=== PATIENT | female | born 1990 | race Caucasian/White ===

== ENCOUNTER → 2018-03-16 | Outpatient (CLI) | payer SELFPAY ==
--- NOTE | 2018-03-16 16:14 | RADIOLOGY REPORT (SQ) ---
EXAM DESCRIPTION: U/S OB 14+ TRNABD 1GES W/O DOP COMPLETED DATE/TIME: 03/16/2018 3:55 pm REASON FOR STUDY: Z34.82 ENCOUNTER FOR SUPERVISION OF OTHER NORMAL ,SECOND TRIMESTER Z34.82 ENCOUNTER FOR SUPRVSN OF NORMAL , SECOND TRI COMPARISON: None. TECHNIQUE: Static and Dynamic grayscale imaging performed of gravid uterus using transabdominal appr oach. Additional selected color Doppler and spectral images recorded. All stored on PACS. LIMITATIONS: None. FINDINGS: FETUSES SEEN:1 EGA: 19 week 2 day. Calculated using BPD,FL,HC,AC documented on images. No discrepancy with clinical dates. MONICA: 08/08/2018. EFW: 289 grams PERCENTILE: Not applicable. Fetus less than or equal to 20 weeks gestation. CORIE: Largest measured pocket 4.4 cm. PLACENTA: Posterior. GRADE: I PRESENTATION: Cephalic. ANATOMY: HEART RATE: 157 beats per minute. FOUR CHAMBER HEART: Visualized. THREE VESSEL CORD: Yes. CORD INSERTION: Visualized. KIDNEYS AND BLADDER: Visualized. Appear normal. STOMACH: Visualized. Appears normal. SPINE: Normal as visualized. BRAIN AND LATERAL VENTRICLES: Visualized. Appear normal. OTHER: No other significant finding. MATERNAL ADNEXA: Maternal ovaries not visualized. CERVICAL LENGTH: 6.2 cm. Closed. OTHER: No other significant finding. IMPRESSION: LIVING INTRAUTERINE . ESTIMATED GESTATIONAL AGE 19 WEEK 2 DAY. NO VISUALIZED ANOMALIES. Trimester of : Second trimester - 13 weeks 1 day to 27 weeks 6 days. TECHNICAL DOCUMENTATION: JOB ID: [id number]- All Rights Reserved Reading location - IP/workstation name: JOSE D
== END ==
LOC: RAD 14:54
PROVIDERS: ATTEND Nurse Practitioner
DX: Z34.82 Encounter for supervision of other normal pregnancy, second trimester (principal)
CPT/HCPCS: 76805

== ENCOUNTER 2018-07-01 11:22 | Outpatient (CLI) | payer OTHER, MEDICAID ==
[2018-07-01 12:37] LABS: APPEARANCE,URINE CLEAR; BILIRUBIN,URINE NEGATIVE (NEGATIVE); COLOR,URINE YELLOW; GLUCOSE, URINE NEGATIVE (NEGATIVE); KETONES,URINE NEGATIVE (NEGATIVE); LEUKOCYTE ESTERASE,URINE NEGATIVE (NEGATIVE); NITRITE,URINE NEGATIVE (NEGATIVE); PROTEIN,URINE NEGATIVE (NEGATIVE); URINE SPECIFIC GRAVITY 1.009; UROBILINOGEN,URINE NEGATIVE mg/dL (<2.0)
--- NOTE | 2018-07-01 12:37 | Non Stress Test Report ---
Non Stress Test Datetime Report Generated by CPN: 07/01/2018 12:37 DEMOGRAPHIC EGA NST: 35.0 INDICATION Indication for Study: Ordered by Provider VITAL SIGNS Temperature - NST: 97.9 Pulse - NST: 93 RESP - NST: 18 NBPSYS NST: 94 NBPDIA NST: 54 MONITORING Monitor Explained: Monitor Explained; Test Explained; Patient Verbalized Understanding Time on Monitor: 07/01/2018 11:35 Time off Monitor: 07/01/2018 12:10 NST Duration: 35 NST INTERVENTIONS NST Interventions: PO Hydration Physician Notified NST: K Turpin CNM BABY A: [id number] BABY A Movement : Present Contraction Frequency : irritability FHR Baseline : 145 Accelerations : 15X15 Decelerations : None Variability : Moderate 6-25bpm NST Review: Meets Criteria for Reactive NST NST Review and Verified By : Rony Hopson RN NST Results: Reactive NST REPORT Report Trigger: Send Report
[2018-07-01 12:38] LABS: URINE AMPHETAMINES SCREEN NEGATIVE; URINE BARBITURATES SCREEN NEGATIVE; URINE BENZODIAZEPINES SCREEN NEGATIVE; URINE COCAINE SCREEN NEGATIVE; URINE MARIJUANA (THC) SCREEN NEGATIVE; URINE METHADONE SCREEN NEGATIVE; URINE PHENCYCLIDINE SCREEN NEGATIVE
== END 2018-07-01 12:39 | disposition home or self-care (01) ==
LOC: LC 11:22
PROVIDERS: ATTEND Obstetrics & Gynecology
PROC: 4A1HXCZ Monitoring of Products of Conception, Cardiac Rate, External Approach (ICD-10-PCS; principal; 2018-07-01)
DX: O47.03 False labor before 37 completed weeks of gestation, third trimester (principal); Z3A.35 35 weeks gestation of pregnancy
CPT/HCPCS: 59025; 80307; 81001; 84112

== ENCOUNTER 2018-07-14 17:39 | Outpatient (CLI) | payer OTHER, MEDICAID ==
[2018-07-14 18:29] LABS: APPEARANCE,URINE CLOUDY; BILIRUBIN,URINE NEGATIVE (NEGATIVE); COLOR,URINE YELLOW; GLUCOSE, URINE NEGATIVE (NEGATIVE); KETONES,URINE NEGATIVE (NEGATIVE); LEUKOCYTE ESTERASE,URINE TRACE (NEGATIVE); NITRITE,URINE NEGATIVE (NEGATIVE); PROTEIN,URINE NEGATIVE (NEGATIVE); URINE SPECIFIC GRAVITY 1.006; UROBILINOGEN,URINE NEGATIVE mg/dL (<2.0)
[2018-07-14 18:51] LABS: URINE AMPHETAMINES SCREEN NEGATIVE; URINE BARBITURATES SCREEN NEGATIVE; URINE BENZODIAZEPINES SCREEN NEGATIVE; URINE COCAINE SCREEN NEGATIVE; URINE MARIJUANA (THC) SCREEN NEGATIVE; URINE METHADONE SCREEN NEGATIVE; URINE PHENCYCLIDINE SCREEN NEGATIVE
[2018-07-14] MEDS ORDERED: RINGERS SOLUTION,LACTATED 300 ML IV ONE (18:56)
[2018-07-14] MEDS ORDERED: ONDANSETRON HCL INJ/PF 4 MG/2 ML SDV IV ONE (19:16)
[2018-07-14] MEDS ORDERED: RINGERS SOLUTION,LACTATED 1,000 ML IV PRN (19:22)
[2018-07-14] MEDS ORDERED: ONDANSETRON HCL INJ/PF 4 MG/2 ML SDV ONE (19:31)
--- NOTE | 2018-07-14 20:57 | Non Stress Test Report ---
Non Stress Test Datetime Report Generated by CPN: 07/14/2018 20:57 DEMOGRAPHIC Test Number: 2 EGA NST: 36.6 INDICATION Indication for Study (NST) Other: N/V and back pain MONITORING Monitor Explained: Monitor Explained; Test Explained; Patient Verbalized Understanding Time on Monitor: 07/14/2018 18:05 Time off Monitor: 07/14/2018 20:20 NST Duration: 135 NST INTERVENTIONS NST Interventions: PO Hydration; IV Fluids; Other Physician Notified NST: Dr. Hardwick BABY A: [id number] BABY A Movement : Present Contraction Frequency : none FHR Baseline : 125 Accelerations : 15X15 Decelerations : None Variability : Moderate 6-25bpm NST Review: Meets Criteria for Reactive NST NST Review and Verified By : JAMES Schaffer NST Results: Reactive NST REPORT Report Trigger: Send Report
== END 2018-07-14 20:38 | disposition home or self-care (01) ==
LOC: LC 17:39
PROVIDERS: ATTEND Obstetrics & Gynecology
PROC: 4A1HXCZ Monitoring of Products of Conception, Cardiac Rate, External Approach (ICD-10-PCS; principal; 2018-07-14)
DX: O21.2 Late vomiting of pregnancy (principal); Z3A.36 36 weeks gestation of pregnancy
CPT/HCPCS: 81005; 80307; 59025; J2405

== ENCOUNTER 2018-07-27 16:45 | Outpatient (CLI) | payer OTHER, MEDICAID ==
[2018-07-27 17:34] LABS: APPEARANCE,URINE CLEAR; BILIRUBIN,URINE NEGATIVE (NEGATIVE); COLOR,URINE STRAW; GLUCOSE, URINE NEGATIVE (NEGATIVE); KETONES,URINE NEGATIVE (NEGATIVE); LEUKOCYTE ESTERASE,URINE NEGATIVE (NEGATIVE); NITRITE,URINE NEGATIVE (NEGATIVE); PROTEIN,URINE NEGATIVE (NEGATIVE); URINE SPECIFIC GRAVITY 1.003; UROBILINOGEN,URINE NEGATIVE mg/dL (<2.0)
--- NOTE | 2018-07-27 17:41 | Non Stress Test Report ---
Non Stress Test Datetime Report Generated by CPN: 07/27/2018 17:41 DEMOGRAPHIC EGA NST: 38.5 INDICATION Indication for Study: Other Indication for Study (NST) Other: LC MONITORING Monitor Explained: Monitor Explained; Test Explained; Patient Verbalized Understanding Time on Monitor: 07/27/2018 17:02 Time off Monitor: 07/27/2018 17:35 NST Duration: 33 NST INTERVENTIONS NST Interventions: None Physician Notified NST: Dr. Redd BABY A: [id number] BABY A Movement : Present Contraction Frequency : none FHR Baseline : 130 Accelerations : 15X15 Decelerations : None Variability : Moderate 6-25bpm NST Review: Meets Criteria for Reactive NST NST Review and Verified By : Gio Rainey RN NST Results: Reactive NST REPORT Report Trigger: Send Report
[2018-07-27 17:53] LABS: URINE AMPHETAMINES SCREEN NEGATIVE; URINE BARBITURATES SCREEN NEGATIVE; URINE BENZODIAZEPINES SCREEN NEGATIVE; URINE COCAINE SCREEN NEGATIVE; URINE MARIJUANA (THC) SCREEN NEGATIVE; URINE METHADONE SCREEN NEGATIVE; URINE PHENCYCLIDINE SCREEN NEGATIVE
== END 2018-07-27 18:07 | disposition home or self-care (01) ==
LOC: LC 16:45
PROVIDERS: ATTEND Obstetrics & Gynecology
PROC: 4A1HXCZ Monitoring of Products of Conception, Cardiac Rate, External Approach (ICD-10-PCS; principal; 2018-07-27)
DX: Z34.83 Encounter for supervision of other normal pregnancy, third trimester (principal); Z3A.38 38 weeks gestation of pregnancy
CPT/HCPCS: 59025; 80307; 81001

== ENCOUNTER 2018-07-31 21:10 | Outpatient (CLI) | payer OTHER, MEDICAID ==
[2018-07-31] MEDS ORDERED: OXYCODONE-ACETAMINOPHEN 5-325 MG TABLET PO ONE (22:05)
[2018-07-31] MEDS ORDERED: ZOLPIDEM TARTRATE 5 MG TABLET PO ONE (22:05)
[2018-07-31] MEDS ORDERED: ZOLPIDEM TARTRATE 5 MG TABLET ONE (22:08)
[2018-07-31] MEDS ORDERED: OXYCODONE-ACETAMINOPHEN 5-325 MG TABLET ONE (22:09)
[2018-07-31 22:11] LABS: APPEARANCE,URINE CLOUDY; BILIRUBIN,URINE NEGATIVE (NEGATIVE); COLOR,URINE YELLOW; GLUCOSE, URINE NEGATIVE (NEGATIVE); KETONES,URINE NEGATIVE (NEGATIVE); LEUKOCYTE ESTERASE,URINE TRACE (NEGATIVE); NITRITE,URINE NEGATIVE (NEGATIVE); PROTEIN,URINE NEGATIVE (NEGATIVE); URINE SPECIFIC GRAVITY 1.016; UROBILINOGEN,URINE NEGATIVE mg/dL (<2.0)
[2018-07-31 22:30] LABS: URINE AMPHETAMINES SCREEN NEGATIVE; URINE BARBITURATES SCREEN NEGATIVE; URINE BENZODIAZEPINES SCREEN NEGATIVE; URINE COCAINE SCREEN NEGATIVE; URINE MARIJUANA (THC) SCREEN NEGATIVE; URINE METHADONE SCREEN NEGATIVE; URINE PHENCYCLIDINE SCREEN NEGATIVE
--- NOTE | 2018-07-31 23:06 | Non Stress Test Report ---
Non Stress Test Datetime Report Generated by CPN: 07/31/2018 23:06 DEMOGRAPHIC EGA NST: 39.2 INDICATION Indication for Study: Other Indication for Study (NST) Other: LC VITAL SIGNS Temperature - NST: 98.1 Pulse - NST: 107 RESP - NST: 16 NBPSYS NST: 98 NBPDIA NST: 55 URINE RESULTS Urine Protein, NST: Negative Urine Ketones - NST: Negative Urine Glucose - NST: Negative Urine Blood - NST: Negative MONITORING Monitor Explained: Monitor Explained; Test Explained Time on Monitor: 07/31/2018 21:30 Time off Monitor: 07/31/2018 22:02 NST Duration: 32 NST INTERVENTIONS NST Interventions: PO Hydration; Reposition Patient Physician Notified NST: Dr. Rodriguez BABY A: [id number] BABY A Movement : Present Contraction Frequency : N/A FHR Baseline : 125 Accelerations : 15X15 Decelerations : None Variability : Moderate 6-25bpm NST Review: Meets Criteria for Reactive NST NST Review and Verified By : YVETTE Mitchell NST Results: Reactive NST REPORT Report Trigger: Send Report
== END 2018-07-31 22:24 | disposition home or self-care (01) ==
LOC: LC 21:10
PROVIDERS: ATTEND Obstetrics & Gynecology
PROC: 4A1HXCZ Monitoring of Products of Conception, Cardiac Rate, External Approach (ICD-10-PCS; principal; 2018-07-31)
DX: Z34.93 Encounter for supervision of normal pregnancy, unspecified, third trimester (principal)
CPT/HCPCS: 59025; 80307; 81005

== ENCOUNTER 2018-08-11 03:40 | Outpatient (CLI) | payer OTHER, MEDICAID ==
[2018-08-11 04:59] LABS: APPEARANCE,URINE SLIGHTLY-CLOUDY; BILIRUBIN,URINE NEGATIVE (NEGATIVE); COLOR,URINE YELLOW; GLUCOSE, URINE NEGATIVE (NEGATIVE); KETONES,URINE NEGATIVE (NEGATIVE); LEUKOCYTE ESTERASE,URINE NEGATIVE (NEGATIVE); NITRITE,URINE NEGATIVE (NEGATIVE); PROTEIN,URINE NEGATIVE (NEGATIVE); URINE SPECIFIC GRAVITY 1.005; UROBILINOGEN,URINE NEGATIVE mg/dL (<2.0)
[2018-08-11 05:19] LABS: URINE AMPHETAMINES SCREEN NEGATIVE; URINE BARBITURATES SCREEN NEGATIVE; URINE BENZODIAZEPINES SCREEN NEGATIVE; URINE COCAINE SCREEN NEGATIVE; URINE MARIJUANA (THC) SCREEN NEGATIVE; URINE METHADONE SCREEN NEGATIVE; URINE PHENCYCLIDINE SCREEN NEGATIVE
[2018-08-11] MEDS ORDERED: HYDROXYZINE PAMOATE 50 MG CAPSULE PO ONE (06:11)
--- NOTE | 2018-08-11 06:11 | Non Stress Test Report ---
Non Stress Test Datetime Report Generated by CPN: 08/11/2018 06:10 DEMOGRAPHIC Test Number: 5 EGA NST: 40.6 INDICATION Indication for Study: Ordered by Provider; Other Indication for Study (NST) Other: labor check MONITORING Monitor Explained: Monitor Explained; Test Explained; Patient Verbalized Understanding Time on Monitor: 08/11/2018 04:07 Time off Monitor: 08/11/2018 05:01 NST Duration: 54 NST INTERVENTIONS NST Interventions: PO Hydration; Reposition Patient Physician Notified NST: Hardwick MD BABY A: [id number] BABY A Movement : Present Contraction Frequency : 4-12 FHR Baseline : 130 Accelerations : 15X15 Decelerations : None Variability : Moderate 6-25bpm NST Review: Meets Criteria for Reactive NST NST Review and Verified By : JAMES Bourne NST Results: Reactive NST REPORT Report Trigger: Send Report
[2018-08-11] MEDS ORDERED: HYDROXYZINE PAMOATE 50 MG CAPSULE ONE (06:14)
== END 2018-08-11 06:25 | disposition home or self-care (01) ==
LOC: LC 03:40
PROVIDERS: ATTEND Obstetrics & Gynecology
PROC: 4A1HXCZ Monitoring of Products of Conception, Cardiac Rate, External Approach (ICD-10-PCS; principal; 2018-08-11)
DX: Z34.93 Encounter for supervision of normal pregnancy, unspecified, third trimester (principal); Z3A.40 40 weeks gestation of pregnancy
CPT/HCPCS: 80307; 81005

== ENCOUNTER 2018-08-11 12:44 | Inpatient (IN) | payer OTHER, MEDICAID ==
[2018-08-11] MEDS ORDERED: MORPHINE SULFATE 10 MG/ML INJ IM ONE (13:57)
[2018-08-11] MEDS ORDERED: PROMETHAZINE HCL INJ 50 MG/1 ML VIAL IM ONE (13:59)
[2018-08-11] MEDS ORDERED: MORPHINE SULFATE 10 MG/ML INJ ONE (14:40)
[2018-08-11] MEDS ORDERED: RINGERS SOLUTION,LACTATED 1,000 ML IV ONE (16:44)
[2018-08-11] MEDS ORDERED: RINGERS SOLUTION,LACTATED 1,000 ML IV PRN (16:44)
--- NOTE | 2018-08-11 17:25 | Admission Physical ---
Datetime Report Generated by CPN: 08/11/2018 17:24 CURRENT ADMISSION Hx Assessment: The History has been Reviewed and is Current Chief Complaint: Uterine Contractions Indication for Induction: Not Applicable Admit Impression : Postterm, Intrauterine Admit Impression- Other: early labor Admit Plan: Admit to Unit; Initiate Labor Protocol ALLERGIES Medication Allergies: Yes Medication Allergies: Penicillins (08/11/2018); Sulfa (Sulfonamide Antibiotics) (08/11/2018) Latex: No Latex Allergies Food Allergies: Lorenzo greens Environmental Allergies: Yellow jacket OBSTETRICAL HISTORY EDC: 08/05/2018 00:00 : 2 Para: 0 IAB: 1 Ectopic: 0 Gestational Diabetes: No Rh Sensitization: No Incompetent Cervix: No DANIELA: No Infertility: Yes ART Treatment: No Uterine Anomaly: No IUGR: No Hx Previous C/S: No Macrosomia: No Hx Loss/Stillborn: No PIH: No Hx : No Placenta Previa/Abruption: No Depression/PP Depression: Yes PTL/PROM: No Post Hemorrhage: No Current Procedures: Ultrasound Obstetrical History Comments: PCOS 2010, IAB G2- Current SEE RECORDS Alcohol: No Marijuana : No Cocaine: No Other Illicit Drugs: No Cigarettes: Current Everyday Smoker. 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 Abnormal Pap smear 2009 INFECTIOUS HISTORY Gonorrhea: No Genital Herpes: Yes Chlamydia: No Tuberculosis: No Syphilis: No Hepatitis: No HIV/AIDS Exposure: No Rash or Viral Illness: No HPV: No Infectious History Comments: HSV 1 PHYSICAL EXAM General: Normal Heart: Normal Lungs: Normal Extremities: Normal Vital Signs: Reviewed VAGINAL EXAM Dilatation: 3-4 Effacement: 90 Station: -2 MEMBRANES Membranes: Intact FETUS A EGA: 40.6 Monitoring: External US Estimated Weight (gm): 3400 Presentation: Vertex Admit Comment: 28yo @40w6d into L_D with contractions, was seen earlier this am, sent home and was scheduled for IOL tonight. Pt was not coping well with contractions and decision was made to therapeutic rest her at that time. Pt. was allowed to rest for a couple of hours after IM morphine and phenergan then rechecked by Dr. Rich and admitted with cervical change. Pt. is O positive, RI and GBS neg. Medical hx significant for EAB, elevated 1hr but passed 3hr GTT. No concerns today, plan is to admit her at his time, augment as needed, epidural prn. Reassess as clinically indicated/earlier prn. PLANS FOR LABOR AND DELIVERY Labor and Delivery: Other, Specify Pain Management: Epidural Feeding Preference: Breast Benefit of Breast Feed Discussed: Yes Circumcision: N/A INFORMED CONSENT Assignment: Ina Rich MD Signature: with User ID: [email or web address] : with User ID: [email or web address]
[2018-08-11 17:56] LABS: ABSOLUTE EOSINOPHILS # (AUTO) 0.1 10^3/uL (0.0-0.6); ABSOLUTE LYMPHOCYTES (AUTO) 3.3 10^3/uL (0.5-4.7); ABSOLUTE NEUT (AUTO) 9.4 10^3/uL (1.7-8.2); BASOPHILS % (AUTO) 0.3 % (0-2); EOSINOPHILS % (AUTO) 0.4 % (0-6); HEMATOCRIT 37.6 % (36.0-47.0); HEMOGLOBIN 12.7 g/dL (12.0-15.5); LYMPHOCYTES % (AUTO) 23.8 % (13-45); MEAN CORPUSCULAR HEMOGLOBIN 29.4 pg (27.0-33.4); MEAN CORPUSCULAR HGB CONC 33.9 g/dL (32.0-36.0); MEAN CORPUSCULAR VOLUME 87 fl (80-97); PLATELET COUNT 277 10^3/uL (150-450); RED BLOOD COUNT 4.33 10^6/uL (3.72-5.28); RED CELL DISTRIBUTION WIDTH 14.9 % (11.5-14.0); SEGMENTED NEUTROPHILS % (AUTO) 68.5 % (42-78); TOTAL CELLS COUNTED % (AUTO) 100 %; WHITE BLOOD COUNT 13.7 10^3/uL (4.0-10.5)
[2018-08-11] MEDS ORDERED: LIDOCAINE 1% INJ-PF (10 MG/ML) 30 ML SDV ONE ×2 (19:36→19:48)
[2018-08-11] MEDS ORDERED: EPHEDRINE SULFATE INJ 50 MG/1 ML AMPULE ONE ×2 (19:36→19:47)
[2018-08-11] MEDS ORDERED: OXYTOCIN/NORMAL SALINE 0 UNIT/0 ML RTUINJ ONE (19:36)
[2018-08-11] MEDS ORDERED: OXYTOCIN 10 UNIT/ML VIAL ONE ×2 (19:36→19:47)
[2018-08-11] MEDS ORDERED: MISOPROSTOL 0.2 MG TABLET ONE ×2 (19:36→19:47)
[2018-08-11] MEDS ORDERED: FENTANYL/BUPIVACAINE/NS/PF 300 MCG/150 ML RTUINJ EPI ONE ×2 (19:36→19:48)
[2018-08-11] MEDS ORDERED: BUPIVACAINE HCL 0.25 % INJ/PF (2.5 MG/1 ML) 30 ML VIAL ONE ×2 (19:37→19:48)
[2018-08-11] MEDS ORDERED: OXYTOCIN/NORMAL SALINE 20 UNIT/1,000 ML RTUINJ IV PRN (19:46)
[2018-08-11] MEDS ORDERED: OXYTOCIN/NORMAL SALINE 20 UNIT/1,000 ML RTUINJ ONE ×2 (19:48→22:08)
[2018-08-12] MEDS ORDERED: BENZOCAINE/MENTHOL AEROSOL SPRAY 56 ML TOP PRN (04:08)
[2018-08-12] MEDS ORDERED: DIPHENHYDRAMINE HCL 25 MG CAPSULE PO PRN (04:08)
[2018-08-12] MEDS ORDERED: PROMETHAZINE HCL 25 MG SUPP.RECT PR PRN (04:08)
[2018-08-12] MEDS ORDERED: MEASLES,MUMPS&RUBELLA VACC/PF 0.5 ML VIAL SUBCUT PRN (04:08)
[2018-08-12] MEDS ORDERED: OXYTOCIN/NORMAL SALINE 20 UNIT/1,000 ML RTUINJ IV PRN (04:08)
[2018-08-12] MEDS ORDERED: ACETAMINOPHEN WITH CODEINE #3 TABLET PO PRN ×2 (04:08)
[2018-08-12] MEDS ORDERED: DIBUCAINE 1% OINTMENT 56 GM TP PRN (04:08)
[2018-08-12] MEDS ORDERED: MAGNESIUM HYDROXIDE SUSP 30 ML UDCUP PO PRN (04:08)
[2018-08-12] MEDS ORDERED: PSEUDOEPHEDRINE HCL 30 MG TABLET PO PRN (04:08)
[2018-08-12] MEDS ORDERED: DIPH/PERTUSS(ACELL)/TETANUS VAC/PF 0.5 ML SYR (>=10YO) IM PRN (04:08)
[2018-08-12] MEDS ORDERED: GLYCERIN/WITCH HAZEL LEAF 1 EACH MED..WIPE TP PRN (04:08)
[2018-08-12] MEDS ORDERED: ACETAMINOPHEN 325 MG TABLET PO PRN (04:08)
[2018-08-12] MEDS ORDERED: PROMETHAZINE HCL 25 MG TABLET PO PRN (04:08)
[2018-08-12] MEDS ORDERED: NA PHOS,M-B/NA PHOS,DI-BA (ADULT) 133 ML ENEMA PR PRN (04:08)
[2018-08-12] MEDS ORDERED: PROMETHAZINE HCL INJ 25 MG/1 ML VIAL IV PRN (04:08)
[2018-08-12] MEDS ORDERED: ZOLPIDEM TARTRATE 5 MG TABLET PO PRN (04:08)
[2018-08-12] MEDS ORDERED: OXYTOCIN/NORMAL SALINE 20 UNIT/1,000 ML RTUINJ ONE (04:27)
[2018-08-12] MEDS ORDERED: PRENATAL VITAMIN W DHA CAPSULE PO SCH (10:00)
[2018-08-12] MEDS ORDERED: DOCUSATE SODIUM 100 MG CAPSULE ONE (10:03)
[2018-08-12] MEDS ORDERED: FAMOTIDINE 20 MG TABLET ONE (10:03)
[2018-08-12] MEDS ORDERED: SENNOSIDES/DOCUSATE 8.6-50 MG 1 EACH TABLET ONE (10:03)
[2018-08-12] MEDS ORDERED: FERROUS SULFATE 325 MG TABLET PO ONE (10:03)
[2018-08-12] MEDS: SENNOSIDES/DOCUSATE 8.6-50 MG 1 EACH TABLET PO SCH (10:06)
[2018-08-12] MEDS: DOCUSATE SODIUM 100 MG CAPSULE PO SCH ×2 (10:06→18:12)
[2018-08-12] MEDS: FAMOTIDINE 20 MG TABLET PO SCH ×2 (10:06→22:34)
[2018-08-12] MEDS: FERROUS SULFATE 325 MG TABLET PO SCH ×2 (10:06→18:12)
[2018-08-12] MEDS: IBUPROFEN 800 MG TABLET PO SCH ×3 (13:14→22:34)
[2018-08-12] MEDS ORDERED: IBUPROFEN 800 MG TABLET ONE (14:01)
[2018-08-13] MEDS: IBUPROFEN 800 MG TABLET PO SCH ×3 (05:14→21:43)
[2018-08-13 08:46] LABS: HEMATOCRIT 30.4 % (36.0-47.0); MEAN CORPUSCULAR HEMOGLOBIN 30.5 pg (27.0-33.4); MEAN CORPUSCULAR HGB CONC 34.9 g/dL (32.0-36.0); MEAN CORPUSCULAR VOLUME 88 fl (80-97); PLATELET COUNT 193 10^3/uL (150-450); RED BLOOD COUNT 3.48 10^6/uL (3.72-5.28); RED CELL DISTRIBUTION WIDTH 15.2 % (11.5-14.0); WHITE BLOOD COUNT 13.6 10^3/uL (4.0-10.5)
[2018-08-13 08:47] LABS: HEMOGLOBIN 10.6 g/dL (12.0-15.5)
[2018-08-13] MEDS: FAMOTIDINE 20 MG TABLET PO SCH ×2 (09:55→21:44)
[2018-08-13] MEDS: FERROUS SULFATE 325 MG TABLET PO SCH ×2 (09:55→18:18)
[2018-08-13] MEDS: DOCUSATE SODIUM 100 MG CAPSULE PO SCH (10:48)
[2018-08-13] MEDS: SENNOSIDES/DOCUSATE 8.6-50 MG 1 EACH TABLET PO SCH (10:48)
--- NOTE | 2018-08-13 12:09 | PDOC PROGRESS REPORT ---
Subjective-OB Progress Note for:: 08/13/18 Subjective: reports pain controlled with current meds, bleeding slowing. denies needs. Physical Exam (OB) Vital Signs: Temp Pulse Resp BP Pulse Ox 97.5 F 74 17 106/61 100 08/13/18 07:43 08/13/18 07:43 08/13/18 07:43 08/13/18 07:43 08/13/18 07:43 Intake & Output 08/12/18 08/13/18 08/14/18 06:59 06:59 06:59 Intake Total 1000 300 Balance 1000 300 - Abdomen Description: Soft Hernia Present: Yes Fundal Description: Firm, Midline Fundal Height: u/u - u/2 - Abdominal Distension: No distension Tenderness: Nontender - Extremities Lower extremities: Mildred's sign - neg Calf: Normal, Nontender Objective-Diagnostic Laboratory: 08/13/18 07:34 08/13/18 07:34 WBC 13.6 H RBC 3.48 L Hgb 10.6 L D Hct 30.4 L MCV 88 MCH 30.5 MCHC 34.9 RDW 15.2 H Plt Count 193 Assessment and Plan(PN) - Assessment and Plan (1) Active labor at term Is this a current diagnosis for this admission?: Yes (2) Obstetric vaginal laceration with first degree perineal laceration Is this a current diagnosis for this admission?: Yes (3) Vaginal delivery Is this a current diagnosis for this admission?: Yes - Time Spent with Patient Time with patient: Less than 15 minutes Medications reviewed and adjusted accordingly: Yes - Disposition Anticipated Discharge: Home Within: within 24 hours
[2018-08-14] MEDS: IBUPROFEN 800 MG TABLET PO SCH (05:00)
[2018-08-14 08:32] VITALS: BP 102/54
[2018-08-14] MEDS: FERROUS SULFATE 325 MG TABLET PO SCH (09:42)
[2018-08-14] MEDS: FAMOTIDINE 20 MG TABLET PO SCH (09:42)
--- NOTE | 2018-08-14 10:04 | PDOC DISCHARGE SUMMARY ---
Final Diagnosis Discharge Date: 08/14/18 - Final Diagnosis (1) Active labor at term Is this a current diagnosis for this admission?: Yes (2) Obstetric vaginal laceration with first degree perineal laceration Is this a current diagnosis for this admission?: Yes (3) Vaginal delivery Is this a current diagnosis for this admission?: Yes Discharge Data - Discharge Medication Prescriptions: Ibuprofen [Motrin 800 mg Tablet] 800 mg PO Q8HP PRN #60 tablet PRN Reason: Home Medications: No122/Iron/Folic Acid [ Multi Tablet] 1 tab PO DAILY 07/01/18 Ibuprofen [Motrin 800 mg Tablet] 800 mg PO Q8HP PRN #60 tablet 08/14/18 Procedures: NST Intrapartum Procedure(s): Spontaneous Vaginal Delivery Complication(s): Laceration-Perineal Laceration-Degree: 1st - Diagnosis Test Laboratory: Temp Pulse Resp BP Pulse Ox 97.5 F 75 14 102/54 L 100 08/14/18 07:46 08/14/18 07:46 08/14/18 07:46 08/14/18 07:46 08/14/18 07:46 08/11/18 08/13/18 17:21 07:34 RBC 4.33 3.48 L Hgb 12.7 10.6 L D Hct 37.6 30.4 L - Discharge information/Instructions Discharge Activity: Balance Activity w/Rest, Pelvic Rest Discharge Diet: Regular Disposition: HOME, SELF-CARE Follow up with: [facility] in: 4, Weeks
--- NOTE | 2018-08-18 08:10 | Delivery Summary ---
Del Sum A-C Datetime Report Generated by CPN: 08/18/2018 08:09 DELIVERY PERSONNEL DELIVERY PERSONNEL: [id number] Delivery Doctor:: Ina Rich MD Anesthesiologist:: Wallace Mack MD Labor and Delivery Nurse:: Carlie Montana RNliquid sugar melter Nurse:: Lisa Savage RN Meter Installer/BOOT AND SADDLE REPAIR PERSON: Connie Sánchez, COSMETIC MAKER MATERNAL INFORMATION Delivery Anesthesia: Epidural Medications After Delivery: Pitocin Bolus-Please Comment; Pitocin Drip 20 Units/1000ml NSS Estimated Blood Loss (ml): 100 Maternal Complications: None Provider Comments: VFI delivered in TOBY presentation with tight nuchal cord delivered through. Shoulders and body delivered without difficulty. Cord doubly clamped and cut. infant to maternal abdomen for NRP. Placenta delivered intact spontaneously. 1st degree perineal laceration repaired with good hemostasis. FF at U. Mother and baby stable upon provider leaving the room. LABOR SUMMARY EDC: 08/05/2018 00:00 No. Babies in Womb: 1 Attempted: No Labor Anesthesia: Epidural LABOR INFORMATION Reason for Induction: Not Applicable Onset of Labor: 08/11/2018 13:12 Complete Dilatation: 08/12/2018 03:21 Oxytocin: Augmentation Group B Beta Strep: Negative Antibiotics # of Doses: 0 Steroids Given: None Reason Steroids Not Administered: Not Applicable MEMBRANES Membranes Rupture Method: Artificial Rupture of Membranes: 08/12/2018 03:21 Length of Rupture (hr): 0.55 Amniotic Fluid Color: Clear Amniotic Fluid Amount: Small Amniotic Fluid Odor: Normal STAGES OF LABOR Stage 1 hr: 14 Stage 1 min: 9 Stage 2 hr: 0 Stage 2 min: 33 Stage 3 hr: 0 Stage 3 min: 3 Total Time in Labor hr: 14 Total Time in Labor min: 45 VAGINAL DELIVERY Episiotomy: None Laceration #1: Perineal Laceration Extension #1: First Degree Laceration Repair: Yes Laceration Repair Note: 1st degree perineal laceration repaired in usual fashion Sponge Count Correct: Yes Sharps Count Correct: Yes CSECTION DELIVERY Primary Indication: N/A Secondary Indication: N/A CSection Incidence: N/A Labor: N/A Elective: N/A CSection Incision: N/A BABY A INFORMATION Delivery Date/Time: 08/12/2018 03:54 Method of Delivery: Vaginal Born in Route : No : N/A Forceps: N/A Vacuum Extraction: N/A Shoulder Dystocia : No PRESENTATION/POSITION BABY A Presentation: Cephalic Cephalic Presentation: Vertex Vertex Position: Left Occipital Anterior Breech Presentation: N/A PLACENTA INFORMATION BABY A Placenta Delivery Time : 08/12/2018 03:57 Placenta Method of Delivery: Spontaneous Placenta Status: Delivered SCORES BABY A Heart Rate 1 min: >100 bpm Resp Effort 1 min: Good Cry Reflex Irritability 1 min: Cough or Sneeze or Pulls Away Muscle Tone 1 min: Active Motion Color 1 min: Blue/Pale SCORE 1 MIN: 8 Heart Rate 5 min: >100 bpm Resp Effort 5 min: Good Cry Reflex Irritability 5 min: Cough or Sneeze or Pulls Away Muscle Tone 5 min: Active Motion Color 5 min: Body [place], Extremities Blue SCORE 5 MIN: 9 INFORMATION BABY A Gestational Age at Delivery: 41.0 Gestational Status: Late Term- 41- 41.6 Weeks Infant Outcome : Liveborn Condition : Stable Infant Sex: Female IDENTIFICATION BABY A Infant Verification Date/Time: 08/12/2018 04:20 ID Band Number: [id number] Mother's Name Verified: Yes Infant RN Verifying : StephenYVETTE Additional Verifying Personnel: CJohnathan Savage, RN WEIGHT/LENGTH BABY A Birthweight (gm): 2800 Infant Weight (lb): 6 Infant Weight (oz): 3 Length (in): 20.00 Length (cm): 50.80 CORD INFORMATION BABY A No. Cord Vessels: 3 Nuchal Cord : Around Neck x1, Tight Cord Blood Taken: N/A Suction: None ASSESSMENT BABY A Complications: None Physical Findings at Delivery: Molding of the Head Respirations: Appears Normal Skin to Skin: Yes Skin to Skin Time (min): 45 Movie Projectionist/ALS Called : No Infant Care By: C. Gentilin, RN BABY B INFORMATION : N/A SIGNATURES Signature: with User ID: [email or web address]
== END 2018-08-14 11:50 | disposition home or self-care (01) | DRG 807 ==
LOC: LC 12:44 → LR 16:56 → 2S 08-12 16:35
PROVIDERS: ADMIT Student in an Organized Health Care Education/Training Program; ATTEND Student in an Organized Health Care Education/Training Program
PROC: 10E0XZZ Delivery of Products of Conception, External Approach (ICD-10-PCS; principal; 2018-08-12)
PROC: 0HQ9XZZ Repair Perineum Skin, External Approach (ICD-10-PCS; 2018-08-12)
DX: O48.0 Post-term pregnancy (principal); Z37.0 Single live birth; O69.1XX0 Labor and delivery complicated by cord around neck, with compression, not applicable or unspecified; O70.0 First degree perineal laceration during delivery; O99.334 Smoking (tobacco) complicating childbirth; F17.211 Nicotine dependence, cigarettes, in remission; Z3A.40 40 weeks gestation of pregnancy
CPT/HCPCS: 36415; 85025; 85027; 86592; 86695; 86850; 86900; 86901; 94760; J2270; J2550; J2590; J3010; J3490